=== PATIENT | female | born 1965 | race African-American/Black ===

== ENCOUNTER 2023-03-31 11:24 | Day surgery (SDC) | payer BC ==
[~2023-03-31] VITALS: Ht 177.8 cm; Wt 133.8 kg
[~2023-03-31 11:24] MED LIST: ceFAZolin SODIUM 2 GM in D5W 100 ML IV ONE
[2023-03-31] MEDS ORDERED: NEOSTIGMINE METHYLSULFATE 1 MG/ML, 10 ML VIAL ONE (13:35)
[2023-03-31] MEDS ORDERED: BUPIVACAINE /EPINEPHRINE/PF 0.5% 30 ML VIAL INJ ONE (13:35)
[2023-03-31] MEDS ORDERED: GLYCOPYRROLATE 0.2 MG/ML VIAL ONE (13:35)
[2023-03-31] MEDS ORDERED: ROCURONIUM BROMIDE 10 MG/ML (ZEMURON) ONE (13:35)
[2023-03-31] MEDS ORDERED: SEVOFLURANE 15 MIN GAS INH ONE (13:35)
[2023-03-31] MEDS ORDERED: ONDANSETRON HCL 4 MG/2 ML VIAL ONE (13:35)
[2023-03-31] MEDS ORDERED: DEXAMETHASONE SOD PHOSPHATE 4 MG/ML VIAL ONE (13:35)
[2023-03-31] MEDS ORDERED: METOCLOPRAMIDE HCL 10 MG/2 ML VIAL ONE (13:35)
[2023-03-31] MEDS ORDERED: SUCCINYLCHOLINE CHLORIDE 20 MG/ML(QUELICIN) ONE (13:35)
[2023-03-31] MEDS ORDERED: WATER FOR IRRIGATION,STERILE 1,000 ML IRRIG.SOLN IR ONE (13:35)
[2023-03-31] MEDS ORDERED: NS IRRIG SOLN 1000 ML IR ONE (13:35)
[2023-03-31] MEDS ORDERED: LR 1,000 ML IV.SOLN IV ONE (13:35)
[2023-03-31] MEDS ORDERED: PROPOFOL 200MG/ 20ML VIAL (DIPRIVAN) IV ONE (13:35)
[2023-03-31] MEDS ORDERED: fentaNYL CITRATE/PF 100 MCG/2 ML AMP ONE (13:35)
[2023-03-31] MEDS ORDERED: KETOROLAC TROMETHAMINE 30 MG VIAL ONE (13:35)
[2023-03-31] MEDS ORDERED: ONDANSETRON HCL 4 MG/2 ML VIAL IVP PRN ×2 (15:15→17:15)
[2023-03-31] MEDS ORDERED: HYDROmorphone 1 MG/ML INJ. CARTRIDGE IVP PRN (15:15)
[2023-03-31] MEDS ORDERED: HYDROmorphone 1 MG/ML INJ. CARTRIDGE ONE (16:10)
[2023-03-31] MEDS ORDERED: ACETAMINOPHEN 325 MG TABLET PO PRN ×2 (17:15→17:30)
[2023-03-31] MEDS ORDERED: MORPHINE 2 MG/ML INJ. SYRINGE IVP PRN (17:15)
[2023-03-31] MEDS ORDERED: HYDROcodone/ACETAMIN 10-325 MG TAB PO PRN (17:15)
[2023-03-31] MEDS ORDERED: LORazepam 2 MG/ML VIAL IVP PRN (17:15)
[2023-03-31] MEDS ORDERED: HYDROcodone/ACETAMIN 5-325 MG TAB (NORCO/ VICODIN) PO PRN (17:15)
[2023-03-31] MEDS ORDERED: NALOXONE HCL 0.4 MG/ML AMP (NARCAN) IVP ONE (17:30)
[2023-03-31] MEDS: NACL 0.9% 1,000 ML IV SCH (19:01)
[2023-03-31 20:00] VITALS: BP_SYST 133
[2023-03-31] MEDS: FAMOTIDINE 20 MG TABLET PO SCH (20:45)
[2023-03-31] MEDS: HYDROmorphone 1 MG/ML INJ. CARTRIDGE IVP PRN (20:46)
[2023-04-01] MEDS: HYDROmorphone 1 MG/ML INJ. CARTRIDGE IVP PRN (01:09)
[2023-04-01 01:24] VITALS: BP_SYST 135
[2023-04-01] MEDS: NACL 0.9% 1,000 ML IV SCH (05:51)
[2023-04-01 08:07] VITALS: BP_SYST 124
[2023-04-01] MEDS: FAMOTIDINE 20 MG TABLET PO SCH (08:53)
[2023-04-01] MEDS ORDERED: PROPRANOLOL HCL (INDERAL LA 60MG) PO SCH (09:00)
[2023-04-01 12:20] VITALS: BP_SYST 129
== END 2023-04-01 12:55 | disposition home or self-care (01) ==
LOC: SDS 11:24 → SMU 11:27 → SDS 04-01 12:55
PROVIDERS: ATTEND Surgery
DX: K80.10 Calculus of gallbladder with chronic cholecystitis without obstruction (principal); E11.49 Type 2 diabetes mellitus with other diabetic neurological complication; F32.0 Major depressive disorder, single episode, mild; K21.9 Gastro-esophageal reflux disease without esophagitis; E78.5 Hyperlipidemia, unspecified; E66.01 Morbid (severe) obesity due to excess calories; I10 Essential (primary) hypertension; G43.909 Migraine, unspecified, not intractable, without status migrainosus; Z90.710 Acquired absence of both cervix and uterus; Z68.41 Body mass index [BMI] 40.0-44.9, adult; Z79.899 Other long term (current) drug therapy
CPT/HCPCS: 87081; 47563; 82962; 74300; 88304; J3490 ×2; J1100; J1885; J2765; J2405 ×2; J2704; J0330; J3010; J1170 ×2; Q9967; J7060; J7120; C1727; J2710; 76000